=== PATIENT | male | born 1990 ===

== ENCOUNTER → 2023-04-20 15:17 | Outpatient (CLI) | payer BC, SELFPAY ==
--- NOTE | ~2023-04-20 | MR_ITS ---
MRI of the left shoulder Technique: Axial proton-density fat-sat images, coronal proton density fat-sat and T2 fat-sat images, and sagittal T1-weighted and T2 fat-sat images were acquired. Clinical History: Pain Findings: There is no significant degenerative change at the AC joint. Cortical clavicular, coracoacr omial, coracohumeral ligaments are intact. Supraspinatus and infraspinatus tendons are intact, without partial or full-thickness tear. There is minimal tendinosis. Subscapularis tendon is intact, with distal tendinosis. Tendon of the long head o f the biceps is intact. No labral tear identified. Inferior glenohumeral ligament is intact. There is minimal glenohumeral joint effusion. No degenerati ve change. No fluid distention of the subacromial/subdeltoid bursa. No muscle atrophy or edema. Impression: Rotator cuff tendinosis. No partial or full-thickness tear. Reviewed, dictated and finalized at [facility]. [employer]FORMATION [employer] Impression: Rotator cuff tendinosis. No partial or full-thickness tear.
== END ==
PROVIDERS: PCP Orthopaedic Surgery; Visit Provider Orthopaedic Surgery
DX: M25.512 Pain in left shoulder (principal); M77.8 Other enthesopathies, not elsewhere classified
CPT/HCPCS: 73221